=== PATIENT | male | born 1945 | race Caucasian/White ===

== ENCOUNTER 2016-12-12 07:59 | Emergency (ER) | payer OTHER, BC ==
[~2016-12-12] VITALS: Ht 172.7 cm; Wt 114.0 kg
[~2016-12-12 07:59] MED LIST: ACTOPLUS MET1 TABLE1 PO; ALLOPURINOL300 MG PO; ASPIR 8181 M1 PO; ASPIRIN E.C.81 M1 PO; CARDIZEM CD,CA360 MG PO; CARDURA4 MG PO; LITE COAT ASPI325 M1 PO; LOTENSIN40 MG PO; PRAVACHOL40 MG PO; TAZTIA XT360 MG PO; Zyloprim PO
[2016-12-12] MEDS ORDERED: PERCOCET 5/31 TABLET PO (10:56)
[2016-12-12 11:12] VITALS: BP 148/70
== END 2016-12-12 11:34 | disposition home or self-care (01) ==
LOC: EME → EDBD 07:59 → EME 11:34
PROC: 0QSHXZZ Reposition Left Tibia, External Approach (ICD-10-PCS; principal; 2016-12-12)
PROC: 2W3RX1Z Immobilization of Left Lower Leg using Splint (ICD-10-PCS; 2016-12-12)
DX: S82.852A Displaced trimalleolar fracture of left lower leg, initial encounter for closed fracture (principal); W00.0XXA Fall on same level due to ice and snow, initial encounter; I10 Essential (primary) hypertension; E11.9 Type 2 diabetes mellitus without complications; E78.5 Hyperlipidemia, unspecified; Z79.82 Long term (current) use of aspirin; Z87.891 Personal history of nicotine dependence
CPT/HCPCS: 73600; 73610; 99281; 99285; J3010

== ENCOUNTER → 2016-12-17 | Outpatient (CLI) | payer MEDICARE, BC ==
[~2016-12-17] MED LIST changes: +PERCOCET 5/31 TABLET PO
== END | disposition home or self-care (01) ==
LOC: CDC 10:37
DX: R94.31 Abnormal electrocardiogram [ECG] [EKG] (principal)
CPT/HCPCS: 93000